=== PATIENT | female | born 1945 | race Caucasian/White ===

== ENCOUNTER 2016-11-03 20:56 | Emergency (ER) | payer MEDICARE, OTHER ==
[2016-11-03] MEDS ORDERED: KETOROLAC TROMETHAMINE 60 MG/2 ML VIAL IM ONE (21:56)
[2016-11-03] MEDS ORDERED: NALBUPHINE HCL 10 MG/1 ML IM ONE (21:56)
[2016-11-03] MEDS ORDERED: IPRATROPIUM/ALBUTEROL SULFATE 3 ML AMPUL.NEB NEB ONE (21:57)
--- NOTE | 2016-11-03 22:45 | ED Physician Documentation ---
Fall - HISTORIAN Historian: patient, paramedics - [facility] Stated Complaint: left shoulder pain Chief Complaint: Fall Onset: just prior to arrival Context: tripped, lost balance r: moderate Associated Symptoms:: no loss of consciousness Location of Pain/Injury: head, L shoulder Injury to Right Extremity: none Injury to Left Extremity: shoulder Further Comments: yes (71 year old female patient brought in via EMS after tripping when she was walking her dog outside. On arrival patient was sitting on the ground smoking. C/O hitting head and left shoulder pain.) - ROS CONST: no problems NEURO: denies: dizziness, anxiety, depression MS/SKIN/LYMPH: denies: weakness, numbness, neck pain, back pain, ankle swelling , leg swelling, rash, other EYES/ENT: none CVS/RESP: none GI/: denies: problems urinating, nausea, vomiting - PAST HX Past History: COPD Allergies/Adverse Reactions: Allergies Allergy/AdvReac Type Severity Reaction Status Date / Time No Known Allergies Allergy Verified 11/03/16 21:21 Home Medications: Ambulatory Orders Medication Instructions Recorded Aspirin [Aspirin Ec] 81 mg PO DAILY u2 04/13/13 - SOCIAL HX Smoking History: cigarettes - FAMILY HX Family History: denies: none - VITAL SIGNS Vital Signs: Vital Signs Temp Pulse Resp BP Pulse Ox 87 22 220/96 92 11/03/16 21:00 11/03/16 21:00 11/03/16 21:00 11/03/16 21:00 - REVIEWED ASSESSMENTS Nursing Assessment Reviewed: Yes Vitals Reviewed: Yes Progress - Progress Progress: Reviewed lab and xray results with patient. Discussed plan of care. Explained she needed orthopedic consult and treatment of her pneumonia. Patient prefers transfer to [facility]. 0020 Call to [facility], awaiting acceptance. [address] Cano at [facility]. ED Results Lab/Radiology - Radiology Radiology Impressions: Left shoulder -three views CLINICAL HISTORY: Fall with injury. Pain. FINDINGS: Examination left shoulder in multiple views demonstrates comminuted fracture of the humeral neck and head with displacement of the greater tuberosity fragment by approximately 8 mm. The acromioclavicular relationship is anatomic. IMPRESSION: Comminuted fracture of the humeral head and neck. Head CT without contrast CLINICAL HISTORY: Fall with head injury. TECHNIQUE: CT examination of brain is performed in contiguous axial slices without the use of contrast. Sagittal and coronal reconstructions are performed by the technologist. FINDINGS: 4th ventricle lies in a normal midline position. The ventricles and sulci are prominent consistent with the patient's age. There is no hypodense or hyperdense mass or intracranial hemorrhage. Intracranial atherosclerosis is demonstrated. There is a left frontal scalp injury. The underlying bony structures are intact. IMPRESSION: Left frontal scalp injury. Negative intracranial study for the patient's age. Intracranial atherosclerosis. Left humerus -two views CLINICAL HISTORY: Fall with injury. Pain. FINDINGS: Examination left humerus in AP view with internal external rotation demonstrates fracture of the humeral neck and head. The distal humeral shaft is intact. Degenerative changes are seen in the elbow joint. IMPRESSION: Fracture of the humeral neck and head. Degenerative changes in the elbow. Chest - two views Clinical history: Dyspnea. Findings: Examination of the chest in PA and lateral views with no prior films for comparison demonstrates cardiomegaly and aortic atherosclerosis. There is minimal left basilar infiltrate or atelectasis. The right lung is clear. Degenerative changes are seen in the thoracic vertebrae. Impression: 1. Patchy left basilar infiltrate. 2. Cardiomegaly and aortic atherosclerosis. - Orders Orders: ED Orders Category Date Time Status Shoulder Immobilizer 1T Care 11/03/16 21:[address] BRAIN W/O CONTRAST Stat Exams 11/03/16 Taken HUMERUS 2 VIEWS OR MORE [RAD] Stat Exams 11/03/16 Taken SHOULDER 2 VIEWS OR MORE [RAD] Stat Exams 11/03/16 Taken Ipratropium/Albuterol Sulfate [Duoneb] Med 11/03/16 21:57 Discontinued 3 ml NEB NOW ONE Ketorolac Tromethamine [Toradol] Med 11/03/16 21:56 Discontinued 60 mg IM NOW ONE Nalbuphine HCl [Nubain] Med 11/03/16 21:56 Discontinued 10 mg IM NOW ONE Fall Physical Exam - Physical Exam General Appearance: moderate distress Head: non-tender, no swelling, no obvious injury, trauma (left forehead) Neck: non-tender, painless ROM, trachea midline Eye: ANDREW, EOMI, lids & conjunct. nml ENT: nml external inspection, no dental injury, no oral injury, airway nml Resp/CVS: chest non-tender, no ecchymosis, no resp. distress, heart sounds nml, wheezes (bilateral), other (RA Sat 88%) Abdomen: soft, no organomegaly, normal bowel sounds, no abdominal bruit, no distension Neuro: oriented x3, CN's nml as tested, sensation nml, motor nml, mood/affect nml, logistics clerk nml, reflexes nml, logistics clerk symmetrical Skin: color nml, no rash, nml palp., dry Back: normal inspection, no CVA tenderness Extremities: pelvis stable, hips non-tender, no pedal edema, nml color/temp, other (pain, deformity left proximal humerus) Joint: painful (left shoulder) - Elan Coma Score Eyes Open: Spontaneous Speech: Oriented Motor: Obeys Commands Discharge Clincal Impression: CAP (community acquired pneumonia), Tobacco abuse Fracture of humeral head, left, closed Qualifiers: Encounter type: initial encounter Qualified Code(s): S42.292A - Other displaced fracture of upper end of left humerus, initial encounter for closed fracture Fracture of anatomical neck of left humerus Qualifiers: Encounter type: initial encounter Fracture type: closed Qualified Code(s): S42.292A - Other displaced fracture of upper end of left humerus, initial encounter for closed fracture Referrals: Andreas Mcbride MD [Primary Care Provider] - 2 Days Home Medications: Ambulatory Orders Aspirin [Aspirin Ec] 81 mg PO DAILY u2 04/13/13 Condition: Stable Disposition: 02 XFER SHT-TRM HOSP Decision to Admit: NO Decision Time: 00:30
[2016-11-03 23:48] LABS: BASOPHILS % 0.5 (0.0-1.5); EOSINOPHILS % 2.5 % (0.0-6.8); LYMPHOCYTES # 1.4 # k/uL (0.6-4.0); MEAN CORPUSCULAR HEMOGLOBIN 30.5 pg (28.0-34.0); MONOCYTES # 0.4 # k/uL (0.0-0.9); MONOCYTES % 3.2 % (0.0-11.0); NEUTROPHILS # 8.6 # k/uL (1.4-7.7)
[2016-11-04 00:04] LABS: eGFR (African) > 60; eGFR (Non-African) > 60
[2016-11-04] MEDS ORDERED: LEVOFLOXACIN 500MG/D5W 100ML 500 MG in PREMIX BAG 1 BAG IV ONE (00:09)
[2016-11-04] MEDS ORDERED: 0.9 % SODIUM CHLORIDE 1,000 ML IV ONE (00:09)
[2016-11-04] MEDS ORDERED: LEVOFLOXACIN 250MG/D5W 50ML 250 MG in PREMIX BAG 1 BAG IV ONE (00:09)
[2016-11-04] MEDS ORDERED: LEVOFLOXACIN 250MG/D5W 50ML 50 ML IV ONE (00:45)
[2016-11-04] MEDS ORDERED: LEVOFLOXACIN 500MG/D5W 100ML 100 ML IV ONE (00:46)
[2016-11-04 01:25] VITALS: BP 194/76
--- NOTE | 2016-11-04 03:03 | Diagnostic Imaging Report ---
[facility] [address] [facility].[address] [address] ~ ~ ~ ~ Report Submission Date: Nov 03, 2016 9:41:51 PM INTERNET MARKETING STRATEGIST Patient ~ Study Name: NEVILLE MYERS ~ Date: Nov 03, 2016 9:10:44 PM INTERNET MARKETING STRATEGIST ~ Modality Type: CR Gender: F ~ Description: SHOULDER : 47 ~ Institution: [facility] Physician: RYAN MORELAND ~ ~ ~ ~ Left shoulder -three views CLINICAL HISTORY: ~ Fall with injury. ~Pain. FINDINGS: ~ Examination left shoulder in multiple views demonstrates comminuted fracture of the humeral neck and head with displacement of the greater tuberosity fragment by approximately 8 mm. ~The acromioclavicular relationship is anatomic. IMPRESSION: ~ Comminuted fracture of the humeral head and neck. ~ Electronically signed on Nov 03, 2016 9:41:51 PM INTERNET MARKETING STRATEGIST by: Omar BLAIR
--- NOTE | 2016-11-04 03:05 | Diagnostic Imaging Report ---
~ [facility] [address] [facility] [address] [place], [place]. [address] ~ ~ ~ ~ Report Submission Date: Nov 03, 2016 9:43:45 PM RADIATION SAFETY OFFICER Patient ~ Study Name: NEVILLE MYERS ~ Date: Nov 03, 2016 9:25:24 PM RADIATION SAFETY OFFICER ~ Modality Type: CT\SR Gender: F ~ Description: CT BRAIN W/O CONTRAST : 47 ~ Institution: [facility] Physician: RYAN MORELAND ~ ~ ~ ~ Head CT without contrast CLINICAL HISTORY: ~ Fall with head injury. TECHNIQUE: ~ CT examination of brain is performed in contiguous axial slices without the use of contrast. ~Sagittal and coronal reconstructions are performed by the technologist. FINDINGS: ~ 4th ventricle lies in a normal midline position. ~The ventricles and sulci are prominent consistent with the patient's age. ~There is no hypodense or hyperdense mass or intracranial hemorrhage. ~Intracranial atherosclerosis is demonstrated. ~There is a left frontal scalp injury. ~The underlying bony structures are intact. IMPRESSION: ~ Left frontal scalp injury. ~ Negative intracranial study for the patient's age. ~ Intracranial atherosclerosis. ~ Electronically signed on Nov 03, 2016 9:43:45 PM RADIATION SAFETY OFFICER by: Omar BLAIR
--- NOTE | 2016-11-04 03:06 | Diagnostic Imaging Report ---
[facility] [address] [facility] [address] [address] ~ ~ ~ ~ Report Submission Date: Nov 03, 2016 10:02:04 PM CALLISTHENICS INSTRUCTOR Patient ~ Study Name: NEVILLE MYERS ~ Date: Nov 03, 2016 9:45:28 PM CALLISTHENICS INSTRUCTOR ~ Modality Type: CR Gender: F ~ Description: UPPER EXTREMITY : 46 ~ Institution: [facility] Physician: RYAN MORELAND ~ ~ ~ ~ Left humerus -two views CLINICAL HISTORY: ~ Fall with injury. ~Pain. FINDINGS: ~ Examination left humerus in AP view with internal external rotation demonstrates fracture of the humeral neck and head. ~The distal humeral shaft is intact. ~Degenerative changes are seen in the elbow joint. IMPRESSION: ~ Fracture of the humeral neck and head. ~ Degenerative changes in the elbow. ~ Electronically signed on Nov 03, 2016 10:02:04 PM CALLISTHENICS INSTRUCTOR by: Omar BLAIR
--- NOTE | 2016-11-04 03:07 | Diagnostic Imaging Report ---
[facility] [address] [facility].[address] [address] ~ ~ ~ ~ Report Submission Date: Nov 03, 2016 11:41:12 PM SALON MANAGER Patient ~ Study Name: NEVILLE MYERS ~ Date: Nov 03, 2016 10:56:26 PM SALON MANAGER ~ Modality Type: CR Gender: F ~ Description: CHEST : 46 ~ Institution: [facility] Physician: RYAN MORELAND ~ ~ ~ ~ Chest - two views Clinical history: ~Dyspnea. ~ Findings: ~Examination of the chest in PA and lateral views with no prior films for comparison demonstrates cardiomegaly and aortic atherosclerosis. ~There is minimal left basilar infiltrate or atelectasis. ~The right lung is clear. ~ Degenerative changes are seen in the thoracic vertebrae. Impression: ~ 1. ~Patchy left basilar infiltrate. 2. ~Cardiomegaly and aortic atherosclerosis. ~ Electronically signed on Nov 03, 2016 11:41:12 PM SALON MANAGER by: Omar BLAIR
== END 2016-11-04 01:00 | disposition short-term general hospital (02) ==
LOC: ED 20:56
DX: J18.9 Pneumonia, unspecified organism (principal); F17.210 Nicotine dependence, cigarettes, uncomplicated; S42.292A Other displaced fracture of upper end of left humerus, initial encounter for closed fracture; W19.XXXA Unspecified fall, initial encounter; Y93.9 Activity, unspecified; Y99.9 Unspecified external cause status
CPT/HCPCS: 70450; 71020; 73030; 73060; 80053; 85025; 87040; 87400; 94640; J1885; J1956; J2300; J7030; 96372; 99284; S1016

== ENCOUNTER 2017-02-01 14:47 | Outpatient (CLI) | payer MEDICARE, OTHER ==
[2017-02-01 15:15] LABS: BASOPHILS % 0.9 (0.0-1.5); EOSINOPHILS % 5.1 % (0.0-6.8); MEAN CORPUSCULAR HEMOGLOBIN 28.1 pg (28.0-34.0); MEAN CORPUSCULAR VOLUME 90.3 fl (80.0-100.0); MONOCYTES % 5.4 % (0.0-11.0); NEUTROPHILS # 2.8 # k/uL (1.4-7.7)
[2017-02-01 15:59] LABS: eGFR (African) > 60; eGFR (Non-African) > 60
== END 2017-02-01 14:50 ==
LOC: LAB 14:47
PROVIDERS: ATTEND Family Medicine
DX: E11.9 Type 2 diabetes mellitus without complications (principal); I10 Essential (primary) hypertension
CPT/HCPCS: 36415; 80053; 83036; 85025

== ENCOUNTER 2018-01-07 11:46 | Observation (INO) | payer MEDICARE, OTHER ==
--- NOTE | 2018-01-07 12:13 | ED Physician Documentation ---
General Adult - HISTORIAN Historian: patient - HPI Chief Complaint: Altered Mental Status (post fall) Additional Information: Patient fell and was unable to get bet up and was found on the floor by neighbors today. No sure how long she was on the floor for. Not sure why she fell. Is confused some about events. Timing: still present Severity: mild Modifying Factors: patient is voicing no compalints at this time. Is confused some. - ROS CONST: no problems. denies: fever, sweating, recent illness EYES/ENT: none CVS/RESP: none GI/: none MS/SKIN/LYMPH: joint pain. denies: calf pain, neck pain, leg swelling, rash NEURO/PSYCH: difficulty walking (gait disturbance). denies: headache, fainting , dizziness, tingling, numbness, difficulty with speech, anxiety, depression - PAST HX Past History: other (CAD, leukemia) Other History: diabetes Type 2, other (hearing loss) Surgeries/Procedures: BTL, hysterectomy, other (vaginsl elivery x3) Immunizations: referred to PCP Allergies/Adverse Reactions: Allergies Allergy/AdvReac Type Severity Reaction Status Date / Time No Known Allergies Allergy Verified 01/07/18 12:03 Home Medications: Ambulatory Orders Medication Instructions Recorded Aspirin [Aspirin Ec] 81 mg PO DAILY u2 04/13/13 - SOCIAL HX Smoking History: non-smoker Alcohol Use: none Drug Use: none - FAMILY HX Family History: Yes (CAD, leukemia) - VITAL SIGNS Vital Signs: Vital Signs Temp Pulse Resp BP Pulse Ox 194/76 11/04/16 01:00 - REVIEWED ASSESSMENTS Nursing Assessment Reviewed: Yes Vitals Reviewed: Yes ED Results Lab/Radiology - Radiology Radiology Impressions: Examination: CT head without contrast History: PT IS EXPERIENCING CONFUSION AFTER FALL SOMETIME WITHIN THE LAST WEEK. (Hx) Comparison exam: 03 November 2016 Technique: Noncontrast head CT protocol. Findings: Ventricles and sulci are consistent for patient age. Cerebrocerebellar parenchyma demonstrates periventricular low attenuation consistent with small vessel disease: stable prior examination. Old right basal ganglia infarct. No evidence for parenchymal hemorrhage. No evidence for mass or mass effect. No midline shift. No extra axial fluid collections. Partial visualization of the paranasal sinuses, mastoid air cells, orbits, skull and scalp without gross irregularity. Impression: Stable age related changes. No acute parenchymal process. No hemorrhage. General Adult Physical Exam - PHYSICAL EXAM GENERAL APPEARANCE: no distress EENT: eye inspection normal, ENT inspection normal, pharynx normal, no signs of dehydration NECK: normal inspection, thyroid normal, supple. No: lymphadenopathy, stiff neck, Kernig's, carotid bruit RESPIRATORY: no resp distress, chest non-tender, breath sounds normal. No: wheezes, rales, rhonchi CVS: reg rate & rhythm, heart sounds normal, equal pulses, no murmur, friction rub. No: no gallop, no JVD, bradycardia ABDOMEN: soft, no organomegaly, normal bowel sounds. No: hepatomegaly BACK: normal inspection. No: no CVA tenderness SKIN: warm/dry, normal color. No: cyanosis, diaphoresis, jaundice EXTREMITIES: non-tender, normal range of motion, no evidence of injury NEURO: oriented X3, CN's nml as tested, motor nml, sensation nml, mood/affect nml. No: cognition normal Discharge Clincal Impression: Mental confusion Condition: Stable Disposition: ADMITTED INPATIENT Palliative/Comfort Care: Palliative Care Decision to Admit: [id number] Date of Decison to Admit: 01/07/18 Decision Time: 13:27
[2018-01-07 13:00] LABS: BASOPHILS % 0.6 (0.0-1.5); EOSINOPHILS % 2.1 % (0.0-6.8); MEAN CORPUSCULAR HEMOGLOBIN 28.3 pg (28.0-34.0); MEAN CORPUSCULAR VOLUME 88.5 fl (80.0-100.0); MONOCYTES % 4.4 % (0.0-11.0); NEUTROPHILS # 6.8 # k/uL (1.4-7.7)
[2018-01-07 13:37] LABS: eGFR (Non-African) > 60
[2018-01-07] MEDS ORDERED: ENOXAPARIN SODIUM 30 MG/0.3 ML DISP.SYRIN SQ SCH (15:00)
--- NOTE | 2018-01-07 17:47 | Diagnostic Imaging Report ---
RAHAT ESPINAL [facility] [address] [facility] [address] [place], [place]. [address] Report Submission Date: Jan 07, 2018 12:55:52 PM CDT Patient Study Name: NEVILLE MYERS Date: Jan 07, 2018 12:27:38 PM CDT Modality Type: CT\SR Gender: F Description: CT BRAIN W/O CONTRAST : 47 Institution: [facility] Physician: RAHAT ESPINAL Examination: CT head without contrast History: PT IS EXPERIENCING CONFUSION AFTER FALL SOMETIME WITHIN THE LAST WEEK. (Hx) Comparison exam: 03 November 2016 Technique: Noncontrast head CT protocol. Findings: Ventricles and sulci are consistent for patient age. Cerebrocerebellar parenchyma demonstrates periventricular low attenuation consistent with small vessel disease: stable prior examination. Old right basal ganglia infarct. No evidence for parenchymal hemorrhage. No evidence for mass or mass effect. No midline shift. No extra axial fluid collections. Partial visualization of the paranasal sinuses, mastoid air cells, orbits, skull and scalp without gross irregularity. Impression: Stable age related changes. No acute parenchymal process. No hemorrhage. Electronically signed on Jan 07, 2018 12:55:52 PM CDT by: Rolando BLAIR
[2018-01-07] MEDS: GABAPENTIN 300 MG CAPSULE PO SCH (18:08)
[2018-01-07 18:17] VITALS: BMI 34.4
[2018-01-07] MEDS: PROPRANOLOL HCL 20 MG TABLET PO SCH (19:54)
[2018-01-07] MEDS ORDERED: METFORMIN HCL 1000 MG PO SCH (21:00)
[2018-01-07] MEDS ORDERED: PRAVASTATIN SODIUM 20 MG TABLET PO SCH (21:00)
[2018-01-08 07:16] LABS: BASOPHILS % 0.9 (0.0-1.5); EOSINOPHILS % 5.9 % (0.0-6.8); MEAN CORPUSCULAR HEMOGLOBIN 27.3 pg (28.0-34.0); MEAN CORPUSCULAR VOLUME 89.4 fl (80.0-100.0); MONOCYTES % 6.1 % (0.0-11.0); NEUTROPHILS # 2.7 # k/uL (1.4-7.7)
[2018-01-08 07:17] LABS: eGFR (Non-African) > 60
[2018-01-08] MEDS: GABAPENTIN 300 MG CAPSULE PO SCH (08:57)
[2018-01-08] MEDS: PROPRANOLOL HCL 20 MG TABLET PO SCH (08:57)
[2018-01-08] MEDS ORDERED: GLIMEPIRIDE 2 MG TABLET PO SCH (09:00)
[2018-01-08] MEDS ORDERED: LISINOPRIL 20 MG TABLET PO SCH (09:00)
[2018-01-08] MEDS ORDERED: amLODIPine BESYLATE 5 MG TABLET PO SCH (09:00)
[2018-01-08] MEDS ORDERED: ASPIRIN EC 81 MG TABLET.DR PO SCH (09:00)
[2018-01-08 11:31] VITALS: BP 158/73
--- NOTE | 2018-01-09 15:36 | Discharge Summary ---
DATE OF ADMISSION: January 07, 2018 DATE OF DISCHARGE: January 08, 2018 DIAGNOSES ON THIS HOSPITALIZATION: 1. Fall. 2. Hearing loss. SUMMARIZATION OF ADMISSION HISTORY AND PHYSICAL: This is a 72-year-old female who was found down by a neighbor. She does not remember exactly how long she was down. She did not remember if she had a fall. She got up, however, and she called the office and it was recommended that she be seen in the emergency room for an evaluation. In the emergency room, she did have a CT of her head which showed no evidence of any intracranial pathology other than some age-related changes. No hemorrhages were noted. Her labs showed her to have a normal CBC. Chemistry panel was within normal limits and specifically her creatine kinase was only 137. So, I do not think that she had rhabdomyolysis. HOSPITAL COURSE: She was admitted for observation. She was back to her baseline by the next morning. She will be discharged to home with continuation of all of her regular medications. CONDITION ON DISCHARGE: Discharged to home in improved condition. DISCHARGE INSTRUCTIONS: 1. I will see her back in the office in 2 days. 2. It may be beneficial possibly for her to be placed on some medications for memory, such as Aricept, and further workup for memory loss also. 3. I did leave a message for her son, Damon, and I have not heard back from him yet, to make him aware that she will be discharged today. ROSSY
== END 2018-01-08 13:40 | disposition home or self-care (01) ==
LOC: ED 11:46 → INTOOBSV 14:50 → SOUTH 14:50
PROVIDERS: ADMIT Family Medicine; ATTEND Family Medicine
DX: R41.82 Altered mental status, unspecified (principal)
CPT/HCPCS: 36415; 70450; 80053; 82550; 85025; 93005; G0378; J1650; 96372; 99217; 99218; G0379; S1016

== ENCOUNTER 2018-01-10 12:02 | Outpatient (CLI) | payer MEDICARE, OTHER | END 2018-01-10 12:03 | LOC: LAB 12:02 | PROVIDERS: ATTEND Family Medicine | DX: E11.9 Type 2 diabetes mellitus without complications (principal); R41.3 Other amnesia; R63.5 Abnormal weight gain | CPT/HCPCS: 36415; 82607; 82746; 83036; 84443 ==

== ENCOUNTER 2019-01-23 12:58 | Outpatient (CLI) | payer MEDICARE, OTHER ==
--- NOTE | 2019-01-25 12:08 | Diagnostic Imaging Report ---
ARIANNE BARFIELD (JUNIOR BOOKKEEPER) - ER [facility] [address] [facility] [address] [place] [address]. [address] Report Submission Date: Jan 25, 2019 10:43:10 AM CDT Patient Study Name: RAVIN MALONEY Date: Jan 25, 2019 10:24:37 AM CDT Modality Type: CT Gender: F Description: CT MAXILLOFACIAL W/O D : 07[birth year] Institution: [facility] Physician: ARIANNE BARFIELD (TERI) - ER CT facial bones without contrast History: Right jaw pain with recent tooth extraction 8 weeks prior. Technique: Transaxial computed tomographic images of the facial bones were obtained without contrast according to standard protocol. Coronal and sagittal reformatted images were obtained as part of the examination. Findings: Numerous teeth are absent including the right mandibular premolars and molars and left mandibular molars. There has also been removal of the left 1st and 2nd maxillary premolars and right maxillary molars. No periapical lucency is seen the base of the remaining teeth to suggest residual root abscess. No significant soft tissue swelling is identified. No fluid collection is seen. There is no evidence of acute fracture. Degenerative changes are present in the cervical spine. Impression: 1. Numerous teeth are missing as described above. 2. No focal area of inflammation or fluid collection. 3. No evidence of acute fracture. 4. Cervical spondylosis. Electronically signed on Jan 25, 2019 10:43:10 AM CDT by: Renny BLAIR
--- NOTE | 2019-01-26 10:31 | Diagnostic Imaging Report ---
TYLER GALLAGHER [facility] [address] [facility].[address] [address] Report Submission Date: Jan 26, 2019 9:34:32 AM CDT Patient Study Name: NEVILLE MYERS Date: Jan 23, 2019 1:07:59 PM CDT Modality Type: US\OT Gender: F Description: US NAN 3+ BILAT COMPLETE : 47 Institution: [facility] Physician: TYLER GALLAGHER EXAMINATION: US NAN 3+ BILAT COMPLETE HISTORY: us nan's - pvc ulcer on rt leg COMPARISON: None FINDINGS: Sonographic evaluation of the lower extremity arterial system at the ankles bilaterally demonstrates abnormal pulse volume recordings at the posterior tibial and dorsalis pedis arteries bilaterally. No waveform is seen in the toes. Right ankle/brachial index: 0.40. Left ankle/brachial index: 0.45. IMPRESSION: Reduced ABIs bilaterally and abnormal pulse volume recordings, indicating reduction to hemodynamic flow. CTA runoff is recommended for further evaluation. Electronically signed on Jan 26, 2019 9:34:32 AM CDT by: Cricket BLAIR
== END 2019-01-23 13:00 ==
LOC: RAD 12:58
PROVIDERS: ATTEND Family Medicine
DX: R93.89 Abnormal findings on diagnostic imaging of other specified body structures (principal); I73.9 Peripheral vascular disease, unspecified; L97.912 Non-pressure chronic ulcer of unspecified part of right lower leg with fat layer exposed
CPT/HCPCS: 93923

== ENCOUNTER 2019-04-12 18:34 | Inpatient (IN) | payer MEDICARE, OTHER ==
--- NOTE | 2019-04-12 18:51 | ED Physician Documentation ---
General Adult - HISTORIAN Historian: paramedics, other (Paperwork from Izabel Fleming) - HPI Chief Complaint: Altered Mental Status Additional Information: According to Izabel Fleming nursing report "resident was sleepy this morning- falling asleep at the breakfast table; had to arouse her several times; she was able to feed herself; O2 was 85%- applied oxygen; patient noted to staff that she was not feeling well. They rechecked oxygen level and it was 52%; stated patient was lethargic. Patient had Superficial femoral artery Revascularization catheterization on 04/10/19. She was discharged from [facility] on 04/11/19 on Plavix and Eliquis. Upon arrival patient is alert and oriented- she was 90% on room air- increased to 99% on 2L NC- patient is able to answer questions appropriately; she is just hard of hearing. Onset: hours Timing: better Severity: mild Modifying Factors: S/P hospitalization - ROS CONST: recent illness (recent hospialization at [facility]), weakness EYES/ENT: none CVS/RESP: none GI/: none MS/SKIN/LYMPH: leg swelling (bilateral leg swelling- Peripheral Vascular Disease) NEURO/PSYCH: other (heard of hearing) - PAST HX Past History: A-Fib, CHF, hypertension, other (Obesity, hx of pneumonia, hypercholestrolemia, Tinea unguium, dementia, bilateral cataracts, Insomnia, ) Other History: diabetes Type 2, other (Hearing loss, Peripheral Vascular Disease, Localized Edema) Surgeries/Procedures: BTL, hysterectomy, other (Superficial femoral artery Revascularization catheterization 04/10/19) Allergies/Adverse Reactions: Allergies Allergy/AdvReac Type Severity Reaction Status Date / Time No Known Drug Allergies Allergy Verified 04/12/19 19:11 Home Medications: Ambulatory Orders Medication Instructions Recorded Acetaminophen [Tylenol] 650 mg PO Q4 PRN 04/12/19 Apixaban [Eliquis] 5 mg PO BID 04/12/19 Clopidogrel Bisulfate [Clopidogrel] 75 mg PO DAILY 04/12/19 Donepezil HCl [Aricept] 10 mg PO HS 04/12/19 Furosemide [Lasix] 40 mg PO 714 04/12/19 Gabapentin [Neurontin] 300 mg PO TID 04/12/19 Ipratropium/Albuterol Sulfate 3 ml IH TID PRN 04/12/19 [Iprat-Albut 0.5-3(2.5) mg/3 ml] Lisinopril [Zestril] 20 mg PO DAILY 04/12/19 Loperamide HCl [Loperamide] 2 mg PO Q6H PRN 04/12/19 Magnesium, Aluminum Hydroxide 30 ml PO DAILY PRN 04/12/19 [Maalox] Melatonin 5 mg PO HS 04/12/19 Metformin HCl [Glucophage] 1,[place] [address] 04/12/19 Mirabegron [Myrbetriq] 25 mg PO DAILY 04/12/19 Potassium Chloride [Klor-Con 10] 10 meq PO BID 04/12/19 Propranolol HCl [Inderal] 40 mg PO BID 04/12/19 Quetiapine Fumarate 25 mg PO HS 04/12/19 - SOCIAL HX Smoking History: greater than 1 pack/day (quit 12 months ago) Alcohol Use: none Drug Use: none - FAMILY HX Family History: Yes (Father ; CAD, CHF Mother ) - VITAL SIGNS Vital Signs: Vital Signs Temp Pulse Resp BP Pulse Ox 158/73 01/08/18 10:00 - REVIEWED ASSESSMENTS Nursing Assessment Reviewed: Yes Vitals Reviewed: Yes Progress - Progress Progress: 20:[address] Villalba- will admit for CHF and diradhae 20:10 Spoke with at [facility]- we will admit patient for CHF 20:20 Records from [facility] received from Observation admission - EKG/XRAY/CT Comments: EKG shows Afib rate of 82 ED Results Lab/Radiology - Lab Results Lab Results: ABG; pH 7.30, pCO2 52, pO2 93, TCO2 27.2, HCO3 23.9, SO2 97.9 WBC 11.4, Hgb & Hct 10.7 & 32.5, platelet 197 PT/INR 13.5/1.3 Na 142, K+ 5.4, Cl 102, CO2 26, BUN 49, Cr 3.4, Trop. 0.039, BNP 66611 Lab results at [facility] on 04/11/19 were Na 137, K+ 5.0, CL 102, CO2 25, BUN/Cr 25/1.29, Glucose 144 - Orders Orders: ED Orders Category Date Time Status Continuous EKG monitoring Q30M Care 04/12/19 18:41 Ordered Continuous Pulse Oximetry Q30M Care 04/12/19 18:41 Ordered In & Out Cath [Intermittent urinary catheteri] 1T Care 04/12/19 18:[address] IV Lock 1T Care 04/12/19 18:41 Ordered CHEST 2VIEW [RAD] Stat Exams 04/12/19 Ordered ARTERIAL BLOOD GAS Stat Lab 04/12/19 Uncollected CBC/PLATELET/DIFF Routine Lab 04/12/19 18:41 Ordered CMP Routine Lab 04/12/19 18:41 Ordered CREATINE KINASE Routine Lab 04/12/19 18:41 Ordered NTBNP Stat Lab 04/12/19 Ordered TROPONIN I Stat Lab 04/12/19 18:41 Ordered URINALYSIS Routine Lab 04/12/19 18:42 Uncollected Oxygen Daily Oxygen 04/12/19 18:45 Ordered EKG WITH COMPARISON Stat Ther 04/12/19 18:41 Ordered General Adult Physical Exam - PHYSICAL EXAM GENERAL APPEARANCE: mild distress EENT: eye inspection normal, ENT inspection normal, ANDREW NECK: normal inspection, supple RESPIRATORY: rhonchi CVS: equal pulses (diminished- pedal pulses dopplered), irregularly irregular rhy ABDOMEN: soft, normal bowel sounds BACK: normal inspection SKIN: warm/dry, pallor, other (non-healing lower extremity wounds) EXTREMITIES: edema NEURO: oriented X3, CN's nml as tested, motor nml, sensation nml, cognition normal Discharge Clincal Impression: CHF (congestive heart failure), Acute renal failure Condition: Stable Disposition: ADMITTED INPATIENT Decision to Admit: [id number] Decision Time: 20:28
[2019-04-12] MEDS ORDERED: FUROSEMIDE 40 MG/4 ML VIAL IVP ONE (19:32)
[2019-04-12] MEDS ORDERED: POTASSIUM CHLORIDE 10 MEQ TABLET.ER PO SCH (21:00)
[2019-04-12] MEDS ORDERED: APIXABAN 5 MG TABLET PO SCH (21:00)
[2019-04-12] MEDS ORDERED: QUEtiapine FUMARATE 25 MG TABLET PO SCH (21:00)
[2019-04-12] MEDS ORDERED: DONEPEZIL HCL 10 MG PO SCH (21:00)
[2019-04-12 21:41] VITALS: BMI 37.4
[2019-04-12] MEDS ORDERED: QUEtiapine FUMARATE 25 MG TABLET PO ONE (22:17)
[2019-04-12] MEDS ORDERED: APIXABAN 5 MG TABLET PO ONE (22:17)
[2019-04-12] MEDS ORDERED: DONEPEZIL HCL 5 MG TABLET PO ONE (22:17)
[2019-04-12] MEDS ORDERED: IPRATROPIUM/ALBUTEROL SULFATE 3 ML AMPUL.NEB NEB ONE (22:17)
[2019-04-12] MEDS ORDERED: POTASSIUM CHLORIDE 10 MEQ TABLET.ER PO ONE (22:17)
[2019-04-12] MEDS: IPRATROPIUM/ALBUTEROL SULFATE 3 ML AMPUL.NEB NEB SCH (22:42)
[2019-04-13] MEDS: IPRATROPIUM/ALBUTEROL SULFATE 3 ML AMPUL.NEB NEB SCH ×2 (01:00→05:32)
[2019-04-13] MEDS ORDERED: IPRATROPIUM/ALBUTEROL SULFATE 3 ML AMPUL.NEB NEB ONE ×2 (04:48→05:24)
[2019-04-13] MEDS ORDERED: FUROSEMIDE 40 MG/4 ML VIAL IVP ONE (05:07)
[2019-04-13] MEDS ORDERED: FUROSEMIDE 40 MG/4 ML VIAL ONE (05:11)
--- NOTE | 2019-04-13 05:29 | Diagnostic Imaging Report ---
DAVIN UMANZOR ED [facility] [id number] [facility] [address] [place], [place]. [address] Report Submission Date: Apr 12, 2019 7:26:09 PM CDT Patient Study Name: NEVILLE MYERS Date: Apr 12, 2019 6:42:47 PM CDT Modality Type: DX Gender: F Description: CHEST 2VIEW : 47 Institution: [facility] Physician: DAVIN UMANZOR ED HISTORY: 74-year-old female with hypoxia. COMPARISON: None available. TECHNIQUE: 2 views of the chest were performed. FINDINGS: The heart is markedly enlarged. There is diffuse prominence of the interstitial markings, greater centrally and in the lung bases. Probable scarring and/or atelectasis in the bilateral lung bases. There is a calcified granuloma in the left mid lung. No pneumothorax. There are postoperative changes of left total shoulder arthroplasty. There is moderate thoracic degenerative disc disease. The bones are diffusely osteopenic. IMPRESSION: Cardiomegaly and diffuse prominence of the interstitial markings consistent with CHF. Electronically signed on Apr 12, 2019 7:26:09 PM CDT by: Ra BLAIR
[2019-04-13 05:52] VITALS: BP 152/92
--- NOTE | 2019-04-13 06:02 | Discharge Summary ---
Discharge Summary - Discharge [facility] Admission Date: 04/12/19 Discharge Date: 04/13/19 Discharge To: Other ([facility]) History of Present Illness: Per ER note "According to Izabel Fleming nursing report "resident was sleepy this morning- falling asleep at the breakfast table; had to arouse her several times; she was able to feed herself; O2 was 85%- applied oxygen; patient noted to staff that she was not feeling well. They rechecked oxygen level and it was 52%; stated patient was lethargic. Patient had Superficial femoral artery Revascularization catheterization on 04/10/19. She was discharged from [facility] on 04/11/19 on Plavix and Eliquis. Upon arrival patient is alert and oriented- she was 90% on room air- increased to 99% on 2L NC- patient is able to answer questions appropriately; she is just hard of hearing" 05:30 Patient has been monitored closely throughout the night- she received IV lasix 40mg in the ER last night- she has had less than 50cc of urine output- Heller cath was checked for placement- patient is alert and oriented just very hard of hearing; labs have worsened this morning; will call [facility] and arrange transfer. 06:00 Called and spoke to Chris WASHINGTON, Principal Administrative Clerk at [facility] to arrange transfer. Condition at Discharge: Stable Home Medications: Ambulatory Orders Medication Instructions Recorded Acetaminophen [Tylenol] 650 mg PO Q4 PRN 04/12/19 Apixaban [Eliquis] 5 mg PO BID 04/12/19 Clopidogrel Bisulfate [Clopidogrel] 75 mg PO DAILY 04/12/19 Donepezil HCl [Aricept] 10 mg PO HS 04/12/19 Furosemide [Lasix] 40 mg PO 714 04/12/19 Gabapentin [Neurontin] 300 mg PO TID 04/12/19 Ipratropium/Albuterol Sulfate 3 ml IH TID PRN 04/12/19 [Iprat-Albut 0.5-3(2.5) mg/3 ml] Lisinopril [Zestril] 20 mg PO DAILY 04/12/19 Loperamide HCl [Loperamide] 2 mg PO Q6H PRN 04/12/19 Magnesium, Aluminum Hydroxide 30 ml PO DAILY PRN 04/12/19 [Maalox] Melatonin 5 mg PO HS 04/12/19 Metformin HCl [Glucophage] 1[place] [address] 04/12/19 Mirabegron [Myrbetriq] 25 mg PO DAILY 04/12/19 Potassium Chloride [Klor-Con 10] 10 meq PO BID 04/12/19 Propranolol HCl [Inderal] 40 mg PO BID 04/12/19 Quetiapine Fumarate 25 mg PO HS 04/12/19 Consultations this Visit: None Procedures this Visit: None Allergies/Adverse Reactions: Allergies Allergy/AdvReac Type Severity Reaction Status Date / Time No Known Drug Allergies Allergy Verified 04/12/19 19:11 Patient Problems: Current Active Problems Problem Status Onset Acute renal failure Acute CHF (congestive heart failure) Acute Discharge Summary: Patient is a 74-year-old female that was admitted thru the ER last night for CHF and ARF. She resides at [facility]. She has recently been at [facility] where she had a Superficial femoral artery Revascularization catheterization on 04/10/19. She started to have some lethargy and decreased oxygen saturations at the half-way. She presented to the ER alert and oriented- no acute resp. distress. This morning labs appear to be worsening and patient has had minimal urinary output less than 50cc- catheter was checked for placement. Patient is awake and alert this morning, does not appear to be in any acute resp. distress. 06:[address] Barrientos and order for 500cc bolus given- will administer; provider will accept patient. 06:[address] Mcbride, PCP- agrees with plan of care 06:45 Contacted Scott WASHINGTON at [facility] and updated that patient would be transferred to [facility]. Hospital Course: Patient was given IV lasix in the ER with minimal urinary output of less than 50. She has a heller catheter placed in the ER for accurate I & O. - Final Diagnosis (1) Acute renal failure Problems: Worsening- will transfer. Right or Left: Right (2) CHF (congestive heart failure) Problems: Worsening- will transfer to [facility] Right or Left: Right
[2019-04-13] MEDS ORDERED: 0.9 % SODIUM CHLORIDE 500 ML IV ONE ×2 (06:16)
[2019-04-13 06:38] LABS: BASOPHILS % 0.5 % (0.0-1.5); NEUTROPHILS # 7.7 # k/uL (1.4-7.7)
[2019-04-13 06:40] LABS: BASOPHILS % 0.4 % (0.0-1.5); NEUTROPHILS # 11.2 # k/uL (1.4-7.7)
[2019-04-13 06:41] LABS: APPEARANCE,URINE CLOUDY (CLEAR); COLOR,URINE YELLOW (YELLOW); OCCULT BLOOD,URINE TRACE-INTACT (NEGATIVE); UROBILINOGEN URINE 0.2 Eu (0.2-1.0)
--- NOTE | 2019-04-13 06:50 | Diagnostic Imaging Report ---
DAVIN UMANZOR ED [facility] [address] [facility] [address] [place], [place]. [address] Report Submission Date: Apr 13, 2019 5:40:59 AM CDT Patient Study Name: NEVILLE MYERS Date: Apr 13, 2019 5:08:13 AM CDT Modality Type: DX Gender: F Description: CHEST 1VIEW : 47 Institution: [facility] Physician: DAVIN UMANZOR ED HISTORY: 74-year-old female with hypoxia and shortness of breath COMPARISON: None available. TECHNIQUE: Single portable AP view of the chest was performed. FINDINGS: There is mild scarring or atelectasis in the lung bases. No pneumothorax, consolidative infiltrates, or pulmonary edema. There is a calcified granuloma in the left mid lung. The heart is enlarged. There is prominence of the right hilum. There are postoperative changes of left shoulder arthroplasty. IMPRESSION: 1. Prominence of the right hilum may be due to vascular structures or lymphadenopathy. This may be better characterized with contrasted CT scan of the chest. 2. Cardiomegaly. Electronically signed on Apr 13, 2019 5:40:59 AM CDT by: Ra BLAIR
[2019-04-13] MEDS ORDERED: metFORMIN HCl 500 MG TABLET PO SCH (07:30)
[2019-04-13] MEDS ORDERED: GABAPENTIN 300 MG CAPSULE PO SCH (09:00)
[2019-04-13] MEDS ORDERED: FUROSEMIDE 40 MG/4 ML VIAL IVP SCH (09:00)
[2019-04-13] MEDS ORDERED: MIRABEGRON 25 MG PO SCH (09:00)
[2019-04-13] MEDS ORDERED: PROPRANOLOL HCL 20 MG TABLET PO SCH (09:00)
[2019-04-13] MEDS ORDERED: LISINOPRIL 10 MG TABLET PO SCH (09:00)
[2019-04-13] MEDS ORDERED: CLOPIDOGREL BISULFATE 75 MG TABLET PO SCH (09:00)
== END 2019-04-13 07:00 | disposition short-term general hospital (02) | DRG 292 ==
LOC: ED 18:34 → SOUTH 20:23
PROVIDERS: ADMIT Family Medicine; ATTEND Family Medicine
DX: I11.0 Hypertensive heart disease with heart failure (principal); N17.9 Acute kidney failure, unspecified; I48.91 Unspecified atrial fibrillation; I50.9 Heart failure, unspecified; E66.9 Obesity, unspecified; E78.00 Pure hypercholesterolemia, unspecified; F03.90 Unspecified dementia, unspecified severity, without behavioral disturbance, psychotic disturbance, mood disturbance, and anxiety; H26.9 Unspecified cataract; E11.51 Type 2 diabetes mellitus with diabetic peripheral angiopathy without gangrene; H91.90 Unspecified hearing loss, unspecified ear; Z68.37 Body mass index [BMI] 37.0-37.9, adult; Z98.51 Tubal ligation status; Z90.710 Acquired absence of both cervix and uterus; Z79.01 Long term (current) use of anticoagulants; Z79.84 Long term (current) use of oral hypoglycemic drugs; Z79.02 Long term (current) use of antithrombotics/antiplatelets; Z79.899 Other long term (current) drug therapy; Z87.891 Personal history of nicotine dependence
CPT/HCPCS: 36600; 71045; 71046; 80053; 81002; 82550; 82803; 83605; 83880; 84484; 85025; 85610; 87086; 93005; J1940; J7030; J7060; 94640; 96374; 99283; 99284; S1016